=== PATIENT | male | born 1960 | race Caucasian/White ===

== ENCOUNTER → 2017-11-05 | Outpatient (CLI) | payer OTHER ==
[~2017-11-05] MED LIST: IOHEXOL 180 MG/ML 10 ML VIAL.; LIDOCAINE 1% PF 2 ML VIAL.; methylPREDNISolone ACETATE 40 MG/ML VIAL.; methylPREDNISolone ACETATE 80 MG/ML VIAL.
== END ==
LOC: PNCL 10:24
DX: M54.12 Radiculopathy, cervical region (principal); M48.02 Spinal stenosis, cervical region; E11.9 Type 2 diabetes mellitus without complications; Z87.39 Personal history of other diseases of the musculoskeletal system and connective tissue
CPT/HCPCS: 62321; J1030; J1040; Q9965

== ENCOUNTER → 2017-11-19 | Outpatient (CLI) | payer OTHER | LOC: PNCL 10:01 | DX: M50.10 Cervical disc disorder with radiculopathy, unspecified cervical region (principal); M51.16 Intervertebral disc disorders with radiculopathy, lumbar region; M96.1 Postlaminectomy syndrome, not elsewhere classified | CPT/HCPCS: 62321; J1030; J1040; Q9965 ==

== ENCOUNTER → 2017-12-10 | Outpatient (CLI) | payer OTHER | END | disposition home or self-care (01) | LOC: PNCL 09:38 | DX: M50.10 Cervical disc disorder with radiculopathy, unspecified cervical region (principal); M48.02 Spinal stenosis, cervical region; M51.16 Intervertebral disc disorders with radiculopathy, lumbar region; E11.9 Type 2 diabetes mellitus without complications | CPT/HCPCS: 99212 ==

== ENCOUNTER → 2019-01-08 | Outpatient (CLI) | payer OTHER ==
[~2019-01-08] MED LIST changes: +CYCL10TA2 PO; +GABA300C18 PO; +HYDR-2761 PO; +INSU100V5 IJ; +INSU100V8 SQ; -IOHEXOL 180 MG/ML 10 ML VIAL.; -LIDOCAINE 1% PF 2 ML VIAL.; +NAPR-695 PO; -methylPREDNISolone ACETATE 40 MG/ML VIAL.; -methylPREDNISolone ACETATE 80 MG/ML VIAL.
--- NOTE | 2019-01-08 22:47 | PAIN ---
DATE OF SERVICE: 01/08/2019 PROGRESS NOTE FOR PAIN CLINIC DIAGNOSES: 1. Cervical radiculopathy with cervical degenerative disk disease and cervical spinal stenosis. 2. Lumbar radiculopathy with lumbar degenerative disk disease and post-lumbar laminectomy syndrome. HISTORY OF PRESENT ILLNESS: The patient is a 58-year-old male who returns for followup, last seen 12/2017. The patient had two cervical epidural steroid injections at that time with about 25% improvement overall. The patient reports the pain has returned in the base of the neck and shoulders, right and left upper extremities, more on the right than the left, but noticeable, but not significantly severe. The patient reports he feels like he is doing fairly well with some working out routine that he has been involved in over the past year. He has been going to the gym almost daily. The patient reports his pain is 8 on a scale of 10 at its worst, 7 on average, 7 at its least and is a 7 today. The patient reports it is sharp, tight, shooting, dull in the shoulders and upper extremities bilaterally, again worse on the right than the left. No motor loss, no dropping items or loss of function in the upper extremities. The patient reports he sleeps fairly well at night, generally does not awaken him from sleep. No noticeable with repetitive motions or using upper extremities with some fatigued involved with the right side greater than the left. The patient reports otherwise no new motor or sensory deficits or other complaints. PHYSICAL EXAMINATION: VITAL SIGNS: Today, the patient's blood pressure is 161/71, pulse is 109, respirations 18, temperature 98.5 degrees Fahrenheit, height is 5 feet 9 inches, weight is 213 pounds. GENERAL: The patient is awake, alert, oriented, appropriate, very pleasant demeanor. HEENT: Head is normocephalic, atraumatic. Extraocular movements are intact and symmetrical. Oral cavity: Mucous membranes moist and pink. Dentition is intact. NECK: Shows anterior throat supple without palpable lymphadenopathy noted. Swallow reflex symmetrical. CHEST: Shows normal on inspection. Breath sounds clear to auscultation bilaterally. HEART: Shows S1, S2 clear. No murmurs auscultated. ABDOMEN: Soft, nontender, nondistended. No palpable organomegaly is noted. No rebound or guarding demonstrated. BACK: Shows spine grossly in the midline. Cervical paraspinous muscle shows symmetrical on inspection with normal cervical lordotic curvature. Cervical paraspinous muscle shows moderate tenderness with palpation bilaterally, but only in the middle and lower distribution of the cervical paraspinous muscles and is symmetrical right and left foot with some [id number] tenderness, no trigger points, no radiation of pain. The patient has good rotational motion of cervical spine, both laterally greater than 45 degrees, closer to 90 degrees as well as full extension, full forward flexion without significant difficulty. EXTREMITIES: Upper extremities show deep tendon reflexes 2+ biceps and triceps tendons. Motor exam is strong with lockstitch collar setter strength rated at 5/5 at the bicep and tricep flexion. Shoulder shrug is strong and intact as is abduction of the shoulder to 90 degrees without loss of strength on resistance bilaterally. ASSESSMENT AND PLAN: Options were discussed with the patient. The patient's old chart was reviewed as his current medication regimen updated. Current review of systems updated today as well and we discussed the options. The patient is not interested in pursuing interventional techniques at this time and would like to continue with physical therapy exercises and working on his own at his local gymnasium. We did discuss Medrol Dosepak and we will try this. The patient was given instruction as well as side effects to be aware of with the medication. We will follow up in approximately 2 weeks or as necessary. The patient would like to see how he does. I would like to consider an interventional technique in the future potentially but he is not ready to do this at this time. Again, the patient was given Medrol Dosepak with instructions, side effects to be aware of and will follow up on an as-needed basis at this time. LARISA NICHOLE MD DR: CRIS/trini JOB#: [id number] / [id number]
== END | disposition home or self-care (01) ==
LOC: PNCL 08:45
PROVIDERS: ATTEND Anesthesiology
DX: M50.10 Cervical disc disorder with radiculopathy, unspecified cervical region (principal); M51.16 Intervertebral disc disorders with radiculopathy, lumbar region; M48.02 Spinal stenosis, cervical region; M96.1 Postlaminectomy syndrome, not elsewhere classified
CPT/HCPCS: G0463